=== PATIENT | male | born 1995 | race Caucasian/White ===

== ENCOUNTER 2022-06-16 13:43 | Emergency (ER) | payer BC, OTHER ==
[2022-06-16] MEDS ORDERED: KETOROLAC 15 MG/ML 1 ML VIAL IVP STA (13:57)
[2022-06-16] MEDS ORDERED: diphenhydrAMINE 50 MG/ML 1 ML VIAL IVP STA (13:57)
[2022-06-16] MEDS ORDERED: SODIUM CHLORIDE 0.9% 1,000 ML IV STA (13:57)
[2022-06-16] MEDS ORDERED: METOCLOPRAMIDE 5 MG/ML 2 ML VIAL IVP STA (13:57)
--- NOTE | 2022-06-16 14:17 | CT ---
EXAMINATION TYPE: CT brain cspine wo con CT DLP: 1543 mGycm, Automated exposure control for dose reduction was used. DATE OF EXAM: 06/16/2022 2:09 PM COMPARISON: CT brain 06/21/2015. CLINICAL INDICATION:Male, 27 years old with history of pain; Headache. TECHNIQUE: Brain: Multiple axial CT images of the brain were obtained without IV contrast. Cspine: Axial CT images from the skull base to the inferior aspect of T2 we obtained without intraven ous contrast. Coronal and sagittal reformatted images were also reviewed. FINDINGS: Brain: Extra-axial spaces: No abnormal extra-axial fluid collections. Ventricular system: Within normal limits Cerebral parenchyma: No acute intraparenchymal hemorrhage or mass effect. The macedo-white junction is well differentiated. Cerebellum: Unremarkable. Mass effect: No evidence of midline shift. Intracranial vasculature: unremarkable Soft tissues: Normal. Calvarium/osseous structures: No depressed skull fracture. Paranasal sinuses and mastoid air cells: Mild mucosal thickening of the ethmoid sinuses. The mastoid air cells are clear. Visualized orbits: Orbital contents are intact. Cervical spine: Fracture: None. Osseous structures: Unremarkable Vertebral alignment: Within normal limits. Spinal canal/Neural Foramina: No evidence of significant spinal canal narrowing. No evidence for sign ificant neural foraminal stenosis. Neck soft tissues: Prevertebral soft tissues are within normal limits. Other: The airway is patent. The lung apices are clear. Mild paraseptal emphysematous changes in the lung apices. IMPRESSION: 1. No acute intracranial process. 2. No evidence of cervical spine fracture.
--- NOTE | 2022-06-16 14:32 | ED ---
Headache HPI - General Chief Complaint: Headache Stated Complaint: headache sent from [facility] Time Seen by Provider: 06/16/22 13:50 Mode of arrival: ambulatory Limitations: no limitations - History of Present Illness Initial Comments: Patient is a 27-year-old male who presents to the emergency department with a chief complaint headache. It started yesterday. Patient denies injury and recent falls. Patient reports significant pain in the back of his head which radiates down his neck. Pain is not worsened with movement. He reports light sensitivity without double or blurry vision. No fever, chills, cold-like symptoms, nausea, vomiting. Denies history of migraine. Patient notes he has appointment for removal of top and bottom right wisdom teeth next week. He presented at urgent care today for headache who sent him here for further evaluation. Patient reports minimal pain in his mouth. - Related Data Home Medications Medication Instructions Recorded Confirmed No Known Home Medications 06/21/15 06/16/22 Allergies Allergy/AdvReac Type Severity Reaction Status Date / Time No Known Allergies Allergy Verified 06/16/22 14:05 Review of Systems ROS Statement: Those systems with pertinent positive or pertinent negative responses have been documented in the HPI. ROS Other: All systems not noted in ROS Statement are negative. Past Medical History Past Medical History: No Reported History History of Any Multi-Drug Resistant Organisms: None Reported Past Surgical History: Appendectomy Past Psychological History: No Psychological Hx Reported Smoking Status: Current every day smoker Past Alcohol Use History: None Reported Past Drug Use History: Marijuana General Exam Limitations: no limitations General appearance: alert, in no apparent distress Head exam: Present: atraumatic, normocephalic, normal inspection Eye exam: Present: normal appearance, PERRL, EOMI. Absent: scleral icterus, conjunctival injection, periorbital swelling ENT exam: Present: normal oropharynx Neck exam: Present: normal inspection, full ROM. Absent: tenderness, lymphadenopathy Respiratory exam: Present: normal lung sounds bilaterally. Absent: respiratory distress, wheezes, rales, rhonchi, stridor Cardiovascular Exam: Present: regular rate, normal rhythm, normal heart sounds. Absent: systolic murmur, diastolic murmur, rubs, gallop, clicks Neurological exam: Present: alert, oriented X3, CN II-XII intact Psychiatric exam: Present: normal affect, normal mood Skin exam: Present: warm, dry, intact, normal color. Absent: rash Course Vital Signs 06/16/22 13:44 Temperature 97.8 F Pulse Rate 100 Respiratory 20 Rate Blood Pressure 151/89 O2 Sat by Pulse 98 Oximetry Medical Decision Making - Medical Decision Making Was pt. sent in by a medical professional or institution (, PA, NURSE RECRUITER, urgent care, hospital, or retirement...) When possible be specific @ -No Did you speak to anyone other than the patient for history (EMS, parent, family, police, friend...)? What history was obtained from this source @ -No Did you review nursing and triage notes (agree or disagree)? Why? @ -I reviewed and agree with nursing and triage notes Were old charts reviewed (outside hosp., previous admission, EMS record, old EKG, old radiological studies, urgent care reports/EKG's, retirement records)? Report findings @ -No old charts were reviewed Differential Diagnosis (chest pain, altered mental status, abdominal pain women, abdominal pain men, vaginal bleeding, weakness, fever, dyspnea, syncope, headache, dizziness, GI bleed, back pain, seizure, CVA, palpatations, mental health)? @ -Differential Headache: Migraine, tension, cluster, carbon monoxide, central venous thrombosis, pension karma temporal arteritis, acute closure glaucoma, intercranial hemorrhage, mastoiditis, sinusitis, head injury, this is not meant to be an all-inclusive list. EKG interpreted by me (3pts min.). @ -As above X-rays interpreted by me (1pt min.). @ -None done CT interpreted by me (1pt min.). @ -Yes, CT of the brain and C-spine negative for acute process U/S interpreted by me (1pt. min.). @ -None done What testing was considered but not performed or refused? (CT, X-rays, U/S, labs)? Why? @ -None What meds were considered but not given or refused? Why? @ -None Did you discuss the management of the patient with other professionals (professionals i.e. , DIOGENES, NURSE RECRUITER, lab, RT, psych nurse, social media executive, evaporator operator molasses, teacher, security patrol officer, manager rn case)? Give summary @ -No Was smoking cessation discussed for >3mins.? @ -No Was critical care preformed (if so, how long)? @ -No Were there social determinants of health that impacted care today? How? (Homelessness, low income, unemployed, alcoholism, drug addiction, transportation, low edu. Level, literacy, decrease access to med. care, halfway, rehab)? @ -No Was there de-escalation of care discussed even if they declined (Discuss DNR or withdrawal of care, Hospice)? DNR status @ -No What co-morbidities impacted this encounter? (DM, HTN, Smoking, COPD, CAD, Cancer, CVA, ARF, Chemo, Hep., AIDS, mental health diagnosis, sleep apnea, morbid obesity)? @ -None Was patient admitted / discharged? Hospital course, mention meds given and route, prescriptions, significant lab abnormalities, going to OR and other pertinent info. @ -Patient presenting for headache and neck pain. Due to severity of symptoms CT of the brain and C-spine was obtained which is negative for acute process. There is no evidence of dental infection or abscess patient given headache cocktail with improvement of symptoms. Patient will follow up with his oral surgeon and primary care provider. Undiagnosed new problem with uncertain prognosis? @ -No Drug Therapy requiring intensive monitoring for toxicity (Heparin, Nitro, Insulin, Cardizem)? @ -No Were any procedures done? @ -No Diagnosis/symptom? @ -headache Acute, or Chronic, or Acute on Chronic? @ -acute Uncomplicated (without systemic symptoms) or Complicated (systemic symptoms)? @ -uncomplicated Side effects of treatment? @ -No Exacerbation, Progression, or Severe Exacerbation? @ -No Poses a threat to life or bodily function? How? (Chest pain, [place], [place], pneumonia, PE, COPD, DKA, ARF, appy, cholecystitis, CVA, Diverticulitis, Homicidal, Suicidal, threat to staff... and all critical care pts) @ -No Dr. Mark is my attending Disposition Clinical Impression: Headache Disposition: HOME SELF-CARE Condition: Good Instructions (If sedation given, give patient instructions): Acute Headache (ED) Additional Instructions: Follow-up with oral surgeon and primary care provider. Return to the emergency department if you experience new, concerning, or worsening symptoms. Is patient prescribed a controlled substance at d/c from ED?: No Referrals: Shanique Del Real MD [Primary Care Provider] - 1-2 days
[2022-06-16 15:12] VITALS: BP 128/73; PULSE 79; RESP 14; TEMP 98.2
== END 2022-06-16 15:20 | disposition home or self-care (01) ==
LOC: EC 13:43
DX: R51.9 Headache, unspecified (principal); F17.200 Nicotine dependence, unspecified, uncomplicated; F12.90 Cannabis use, unspecified, uncomplicated
CPT/HCPCS: 72125; 70450; 99284; 96374; 96375 ×2; 96361; J1200; J2765; J1885

== ENCOUNTER → 2024-06-06 | Outpatient (CLI) | payer BC ==
--- NOTE | 2024-06-06 09:41 | XR ---
EXAMINATION TYPE: XR cervical spine comp DATE OF EXAM: 06/06/2024 9:24 AM COMPARISON: None CLINICAL INDICATION: Male, 29 years old with history of M54.2 CERVICALGIA M89.8X1 OTHER SPECIFIED DIS ORDER; PHH, pain TECHNIQUE: The cervical spine was imaged in frontal, lateral, odontoid and bilateral oblique. FINDINGS: The osseous structures show normal alignment without evidence of an acute fracture. There are osteoph ytes noted throughout the cervical spine on the anterior and lateral aspects of the vertebral bodies. The intervertebral disk spaces are narrowed at multiple levels. Pedicles are intact. Soft tissues a re within normal limits. The odontoid appears intact. IMPRESSION: 1. No fracture or dislocation. 2. Mild degenerative disc disease changes of the cervical spine. [facility], , 06/06/2024 9:39 AM
--- NOTE | 2024-06-06 09:42 | XR ---
EXAMINATION TYPE: XR shoulder limited RT, XR scapula RT DATE OF EXAM: 06/06/2024 9:24 AM COMPARISON: None CLINICAL INDICATION: Male, 29 years old with history of M54.2 CERVICALGIA M89.8X1 OTHER SPECIFIED DIS ORDER; PHH, pain TECHNIQUE: XR shoulder limited RT, XR scapula RT; examined in AP, internally rotated and scapular Y p rojections. 2 views of the scapula. FINDINGS: No evidence of acute osseous pathology, joint dislocation, or soft tissue swelling. The remaining po rtions of the visualized chest are unremarkable. Mild degeneration changes of the acromion and dista l clavicle. IMPRESSION: 1. No acute osseous pathology. 2. Mild AC joint shoulder osteoarthrosis. [facility], , 06/06/2024 9:39 AM
== END | disposition home or self-care (01) ==
LOC: RADXRMAIN 09:04
PROVIDERS: ATTEND Family Medicine
DX: M89.8X1 Other specified disorders of bone, shoulder (principal); M50.30 Other cervical disc degeneration, unspecified cervical region; M19.011 Primary osteoarthritis, right shoulder
CPT/HCPCS: 72050